=== PATIENT | male | born 1960 | race Caucasian/White ===

== ENCOUNTER 2018-01-25 19:07 | Inpatient (IN) | payer OTHER ==
[~2018-01-25] VITALS: Ht 182.9 cm; Wt 83.6 kg
[2018-01-25 19:09] VITALS: Ht 182.9 cm; Wt 83.6 kg
[2018-01-25 19:39] LABS: BASOPHIL % 0.7 % (0-2); PLATELET COUNT 195 x10^3mcL (130-400); RED CELL DISTRIBUTION WIDTH 13.4 % (11.5-14.5)
[2018-01-25 20:35] LABS: CALCIUM 8.6 mg/dL (8.5-10.1); CARBON DIOXIDE 22.4 mmol/L (21-32); CHLORIDE SERUM 113 mmol/L (98-107); CREATININE SERUM 1.2 mg/dL (0.7-1.3); GFR1 > 60 mL/min; GLUCOSE SERUM 113 mg/dL (74-106); POTASSIUM SERUM 3.6 mmol/L (3.5-5.1); SODIUM SERUM 149 mmol/L (136-145)
[2018-01-25 20:39] LABS: ALKALINE PHOSPHATASE 115 U/L (46-116); ALT/SGPT 41 U/L (16-63); AST/SGOT 24 U/L (15-37); TOTAL PROTEIN, SERUM 7.4 g/dL (6.4-8.2)
[2018-01-25] MEDS ORDERED: THE MEDICINE S150 MG PO (20:48)
[2018-01-25] MEDS ORDERED: ATORVASTATIN CA40 M1 PO (20:48)
[2018-01-25] MEDS ORDERED: TOPAMAX50 M1 PO (20:48)
[2018-01-25] MEDS ORDERED: ASPIR 8181 MG PO (20:49)
[2018-01-25 22:13] LABS: CHOLESTEROL/HDL RATIO 2.9; MAGNESIUM 2.1 mg/dL (1.8-2.4); PHOSPHOROUS 2.6 mg/dL (2.5-4.9)
[2018-01-25 22:18] LABS: T3 TOTAL 1.16 ng/mL
[2018-01-25 22:20] LABS: FREE T4 0.82 ng/dL (0.76-1.46); FREE THYROXINE INDEX 1.9 ug/dL (1.4-4.5); T4(THYROXINE) 6.2 ug/dL (4.7-13.3)
[2018-01-25 22:35] VITALS: BP 110/70
[2018-01-26 00:58] LABS: urine erythrocyte NEGATIVE (NEGATIVE)
[2018-01-26 01:11] LABS: microscopic required? YES
[2018-01-26 01:20] LABS: AMPHETAMINE QUAL UR NONE DETECTED (See below)
[2018-01-26 04:55] VITALS: BP 119/76
[2018-01-26 07:54] LABS: BASOPHIL % 0.5 % (0-2); PLATELET COUNT 170 x10^3mcL (130-400); RED CELL DISTRIBUTION WIDTH 13.8 % (11.5-14.5)
[2018-01-26 08:01] LABS: CALCIUM 8.1 mg/dL (8.5-10.1); CARBON DIOXIDE 23.1 mmol/L (21-32); CHLORIDE SERUM 115 mmol/L (98-107); CREATININE SERUM 1.1 mg/dL (0.7-1.3); GFR1 > 60 mL/min; GLUCOSE SERUM 96 mg/dL (74-106); POTASSIUM SERUM 4.3 mmol/L (3.5-5.1); SODIUM SERUM 150 mmol/L (136-145)
[2018-01-26 08:19] VITALS: BP 109/62
[2018-01-26 12:21] VITALS: BP 104/62
[2018-01-26 17:24] VITALS: BP 118/80
[2018-01-26 19:10] VITALS: BP 125/78
[2018-01-26 20:47] VITALS: BP 124/79
[2018-01-27 05:03] VITALS: BP 100/61
[2018-01-27 06:58] LABS: BASOPHIL % 0.6 % (0-2); PLATELET COUNT 160 x10^3mcL (130-400); RED CELL DISTRIBUTION WIDTH 13.7 % (11.5-14.5)
[2018-01-27 07:06] LABS: CALCIUM 8.5 mg/dL (8.5-10.1); CARBON DIOXIDE 19.7 mmol/L (21-32); CHLORIDE SERUM 115 mmol/L (98-107); CREATININE SERUM 0.9 mg/dL (0.7-1.3); GFR1 > 60 mL/min; GLUCOSE SERUM 90 mg/dL (74-106); MAGNESIUM 1.8 mg/dL (1.8-2.4); PHOSPHOROUS 3.9 mg/dL (2.5-4.9); SODIUM SERUM 148 mmol/L (136-145)
[2018-01-27] MEDS ORDERED: TOP50 PO (07:25)
[2018-01-27] MEDS ORDERED: NIT0.4 SL (07:29)
[2018-01-27] MEDS ORDERED: LIPITOR40 MG PO (07:33)
[2018-01-27 10:05] VITALS: BP 113/69
[2018-01-27 12:17] VITALS: BP 113/69
[2018-01-27 12:42] VITALS: BP 112/72
[2018-01-27] MEDS ORDERED: GOOD SENSE OMEP20 MG PO (16:48)
== END 2018-01-27 17:18 | disposition home or self-care (01) | DRG 203 ==
LOC: ED 19:07 → DU 21:24
PROVIDERS: Emergency Medicine; Family Medicine; Internal Medicine
DX: M94.0 Chondrocostal junction syndrome [Tietze] (principal); E87.0 Hyperosmolality and hypernatremia; E83.51 Hypocalcemia; K21.9 Gastro-esophageal reflux disease without esophagitis; I69.354 Hemiplegia and hemiparesis following cerebral infarction affecting left non-dominant side; E78.00 Pure hypercholesterolemia, unspecified; G40.909 Epilepsy, unspecified, not intractable, without status epilepticus; I25.2 Old myocardial infarction; Z98.61 Coronary angioplasty status; Z68.25 Body mass index [BMI] 25.0-25.9, adult; Z85.01 Personal history of malignant neoplasm of esophagus; I25.10 Atherosclerotic heart disease of native coronary artery without angina pectoris
CPT/HCPCS: 83880; 84439; 85378; 97110-GP; 97116-GP; 97530-GP; 97535-GP; A9500; J1644; J2270; J2785; J7030; Q0092; Q0162; Q9967

== ENCOUNTER 2019-03-25 00:20 | Emergency (ER) | payer MEDICAID ==
[~2019-03-25] VITALS: Ht 182.9 cm; Wt 86.2 kg
[~2019-03-25 00:20] MED LIST: ASPIR 8181 MG PO; ATORVASTATIN CA40 M1 PO; GOOD SENSE OMEP20 MG PO; LIPITOR40 MG PO; NIT0.4 SL; THE MEDICINE S150 MG PO; TOP50 PO; TOPAMAX50 M1 PO
[2019-03-25 00:23] VITALS: Ht 182.9 cm; Wt 86.2 kg
[2019-03-25 02:08] LABS: CALCIUM 9.9 mg/dL (8.5-10.1); CARBON DIOXIDE 18.6 mmol/L (21-32); CHLORIDE SERUM 110 mmol/L (98-107); CREATININE SERUM 1.9 mg/dL (0.7-1.3); GFR1 38 mL/min; GLUCOSE SERUM 147 mg/dL (74-106); POTASSIUM SERUM 3.9 mmol/L (3.5-5.1); SODIUM SERUM 145 mmol/L (136-145)
[2019-03-25 02:09] LABS: PLATELET COUNT 239 x10^3mcL (130-400); RED CELL DISTRIBUTION WIDTH 12.9 % (11.5-14.5)
[2019-03-25 02:13] LABS: ALKALINE PHOSPHATASE 140 U/L (46-116); ALT/SGPT 32 U/L (16-63); AST/SGOT 19 U/L (15-37); BILIRUBIN TOTAL 0.42 mg/dL (0.20-1.00); CHOLESTEROL 134 mg/dL (<200); TOTAL PROTEIN, SERUM 7.6 g/dL (6.4-8.2)
[2019-03-25 02:17] LABS: BASOPHIL % 0 % (0-2)
[2019-03-25 03:26] LABS: UA SPECIFIC GRAVITY >=1.030 (1.005-1.035); microscopic required? YES; urine erythrocyte 3+ (NEGATIVE)
[2019-03-25 07:56] VITALS: BP 111/64
== END 2019-03-25 07:56 | disposition short-term general hospital (02) ==
LOC: ED 00:20
PROVIDERS: Emergency Medicine
DX: G40.909 Epilepsy, unspecified, not intractable, without status epilepticus (principal); R41.82 Altered mental status, unspecified; E78.00 Pure hypercholesterolemia, unspecified; Z88.2 Allergy status to sulfonamides
CPT/HCPCS: 82962; G0480; J2060; J2405; J7030; Q0092

== ENCOUNTER 2019-04-02 18:05 | Inpatient (IN) | payer MEDICAID ==
[~2019-04-02] VITALS: Ht 172.7 cm; Wt 79.0 kg
[2019-04-02 18:38] LABS: BASOPHIL % 0.1 % (0-2); PLATELET COUNT 342 x10^3mcL (130-400); RED CELL DISTRIBUTION WIDTH 12.3 % (11.5-14.5)
[2019-04-02 18:41] LABS: CARBON DIOXIDE 11.9 mmol/L (21-32); POTASSIUM SERUM 3.6 mmol/L (3.5-5.1)
[2019-04-02 18:46] LABS: ALBUMIN 3.6 g/dL (3.4-5.0); BILIRUBIN TOTAL 0.47 mg/dL (0.20-1.00); TOTAL PROTEIN, SERUM 7.2 g/dL (6.4-8.2)
[2019-04-02 22:20] LABS: BASOPHIL % 0.3 % (0-2); PLATELET COUNT 233 x10^3mcL (130-400); RED CELL DISTRIBUTION WIDTH 12.4 % (11.5-14.5)
[2019-04-02 22:38] LABS: CALCIUM 8.6 mg/dL (8.5-10.1); CARBON DIOXIDE 23.7 mmol/L (21-32); CREATININE SERUM 1.5 mg/dL (0.7-1.3); POTASSIUM SERUM 3.5 mmol/L (3.5-5.1)
[2019-04-02 23:24] VITALS: BP 93/51
[2019-04-02 23:54] LABS: T3 TOTAL 1.24 ng/mL
[2019-04-02 23:56] LABS: FREE T4 0.91 ng/dL (0.76-1.46); FREE THYROXINE INDEX 2.9 ug/dL (1.4-4.5); T4(THYROXINE) 8.2 ug/dL (4.7-13.3)
[2019-04-03 05:03] VITALS: BP 111/66
[2019-04-03 06:15] LABS: CALCIUM 7.7 mg/dL (8.5-10.1); CARBON DIOXIDE 23.4 mmol/L (21-32); CHLORIDE SERUM 115 mmol/L (98-107); CREATININE SERUM 1.2 mg/dL (0.7-1.3); GFR1 > 60 mL/min; GLUCOSE SERUM 101 mg/dL (74-106); POTASSIUM SERUM 3.2 mmol/L (3.5-5.1); SODIUM SERUM 147 mmol/L (136-145)
[2019-04-03 07:24] LABS: BASOPHIL % 0.4 % (0-2); PLATELET COUNT 199 x10^3mcL (130-400); RED CELL DISTRIBUTION WIDTH 12.1 % (11.5-14.5)
[2019-04-03 07:50] VITALS: BP 102/45
[2019-04-03 08:01] LABS: UA SPECIFIC GRAVITY 1.015 (1.005-1.035); microscopic required? YES; urine erythrocyte 3+ (NEGATIVE)
[2019-04-03 08:13] LABS: AMPHETAMINE QUAL UR NONE DETECTED (See below)
[2019-04-03 11:42] VITALS: BP 102/62
[2019-04-03 16:44] VITALS: BP 100/62
[2019-04-03 20:19] VITALS: BP 99/63
[2019-04-04 05:25] VITALS: BP 95/55
[2019-04-04 06:36] LABS: BASOPHIL % 0.7 % (0-2); PLATELET COUNT 187 x10^3mcL (130-400); RED CELL DISTRIBUTION WIDTH 12.1 % (11.5-14.5)
[2019-04-04 06:44] LABS: CALCIUM 7.6 mg/dL (8.5-10.1); CARBON DIOXIDE 24.5 mmol/L (21-32); CHLORIDE SERUM 111 mmol/L (98-107); CREATININE SERUM 1.1 mg/dL (0.7-1.3); GFR1 > 60 mL/min; GLUCOSE SERUM 96 mg/dL (74-106); POTASSIUM SERUM 3.1 mmol/L (3.5-5.1); SODIUM SERUM 144 mmol/L (136-145)
[2019-04-04 09:02] VITALS: BP 107/60
[2019-04-04] MEDS ORDERED: KEPPRA1000 M1 PO (10:55)
[2019-04-04 12:22] VITALS: BP 96/58
[2019-04-04 12:56] VITALS: BP 96/58
== END 2019-04-04 13:39 | disposition home or self-care (01) | DRG 53 ==
LOC: ED 18:05 → DU 22:01
PROVIDERS: Emergency Medicine; ADMIT Internal Medicine
DX: G40.409 Other generalized epilepsy and epileptic syndromes, not intractable, without status epilepticus (principal); N17.0 Acute kidney failure with tubular necrosis; R65.11 Systemic inflammatory response syndrome (SIRS) of non-infectious origin with acute organ dysfunction; E87.8 Other disorders of electrolyte and fluid balance, not elsewhere classified; E87.0 Hyperosmolality and hypernatremia; E86.0 Dehydration; E86.1 Hypovolemia; Z86.73 Personal history of transient ischemic attack (TIA), and cerebral infarction without residual deficits; Z79.82 Long term (current) use of aspirin
CPT/HCPCS: 80201; 84439; 97116-GP; G0378; J1953; J2060; J3475; J7030; J7042; Q0092; Q9967

== ENCOUNTER 2019-10-10 08:52 | Emergency (ER) | payer MEDICAID ==
[~2019-10-10] VITALS: Ht 182.9 cm; Wt 86.2 kg
[~2019-10-10 08:52] MED LIST changes: +KEPPRA1000 M1 PO
[2019-10-10 08:57] VITALS: Ht 182.9 cm; Wt 86.2 kg
[2019-10-10 09:32] LABS: BASOPHIL % 0.9 % (0-2); PLATELET COUNT 189 x10^3mcL (130-400); RED CELL DISTRIBUTION WIDTH 11.8 % (11.5-14.5)
[2019-10-10 09:42] LABS: CALCIUM 9.8 mg/dL (8.5-10.1); CREATININE SERUM 1.3 mg/dL (0.7-1.3)
[2019-10-10 09:49] LABS: BILIRUBIN TOTAL 0.6 mg/dL (0.20-1.00); TOTAL PROTEIN, SERUM 7.1 g/dL (6.4-8.2)
[2019-10-10 09:50] LABS: CHOLESTEROL/HDL RATIO 3.1
[2019-10-10 09:53] LABS: FREE T4 0.92 ng/dL (0.76-1.46); T4(THYROXINE) 6.7 ug/dL (4.7-13.3)
[2019-10-10 10:20] LABS: T3 TOTAL 1.47 ng/mL
[2019-10-10 11:25] VITALS: BP 119/74
[2019-10-11] MEDS ORDERED: KEPPRA500 MG PO (23:08)
== END 2019-10-10 11:25 | disposition home or self-care (01) ==
LOC: ED 08:52
PROVIDERS: Specialist
DX: G40.909 Epilepsy, unspecified, not intractable, without status epilepticus (principal); S39.012A Strain of muscle, fascia and tendon of lower back, initial encounter; E78.00 Pure hypercholesterolemia, unspecified; Z86.73 Personal history of transient ischemic attack (TIA), and cerebral infarction without residual deficits; Z85.01 Personal history of malignant neoplasm of esophagus; Z88.8 Allergy status to other drugs, medicaments and biological substances; W18.39XA Other fall on same level, initial encounter; Y93.89 Activity, other specified; Y92.89 Other specified places as the place of occurrence of the external cause; Y99.8 Other external cause status
CPT/HCPCS: 84439; J1885

== ENCOUNTER 2019-10-11 21:29 | Inpatient (IN) | payer MEDICAID ==
[~2019-10-11] VITALS: Ht 182.9 cm; Wt 84.9 kg
[2019-10-11 22:03] LABS: microscopic required? YES; urine erythrocyte 3+ (NEGATIVE)
[2019-10-11 22:03] LABS: BASOPHIL % 0.3 % (0-2); PLATELET COUNT 154 x10^3mcL (130-400); RED CELL DISTRIBUTION WIDTH 12.4 % (11.5-14.5)
[2019-10-11 22:13] LABS: CALCIUM 9.3 mg/dL (8.5-10.1); CARBON DIOXIDE 24.8 mmol/L (21-32); CREATININE SERUM 2.3 mg/dL (0.7-1.3); POTASSIUM SERUM 3.7 mmol/L (3.5-5.1)
[2019-10-11 22:18] LABS: ALBUMIN 3.9 g/dL (3.4-5.0); BILIRUBIN TOTAL 1.6 mg/dL (0.20-1.00); TOTAL PROTEIN, SERUM 7.5 g/dL (6.4-8.2)
[2019-10-11] MEDS ORDERED: KEPPRA500 MG PO (23:08)
[2019-10-11 23:55] LABS: CHOLESTEROL/HDL RATIO 2.2; MAGNESIUM 1.3 mg/dL (1.8-2.4); PHOSPHOROUS 3.1 mg/dL (2.5-4.9)
[2019-10-12 00:01] LABS: FREE T4 1.19 ng/dL (0.76-1.46); FREE THYROXINE INDEX 2.7 ug/dL (1.4-4.5); T4(THYROXINE) 8.6 ug/dL (4.7-13.3)
[2019-10-12 00:23] LABS: T3 TOTAL 1.17 ng/mL
[2019-10-12 01:18] VITALS: BP 137/86
[2019-10-12 01:20] VITALS: Ht 182.9 cm; Wt 84.9 kg
[2019-10-12 04:29] LABS: AMPHETAMINE QUAL UR NONE DETECTED (See below)
[2019-10-12 04:45] VITALS: BP 143/94
[2019-10-12 06:43] LABS: BASOPHIL % 0.1 % (0-2); PLATELET COUNT 136 x10^3mcL (130-400); RED CELL DISTRIBUTION WIDTH 12.9 % (11.5-14.5)
[2019-10-12 08:07] VITALS: BP 138/83
[2019-10-12 08:13] LABS: CALCIUM 8.3 mg/dL (8.5-10.1); CARBON DIOXIDE 25.9 mmol/L (21-32); CREATININE SERUM 2.1 mg/dL (0.7-1.3); MAGNESIUM 1.4 mg/dL (1.8-2.4)
[2019-10-12 13:16] VITALS: BP 118/66
[2019-10-12 16:40] VITALS: BP 112/51
[2019-10-12 20:36] VITALS: BP 115/60
[2019-10-13 05:05] VITALS: BP 111/52
[2019-10-13 07:21] LABS: CARBON DIOXIDE 24.8 mmol/L (21-32); CREATININE SERUM 2.2 mg/dL (0.7-1.3); POTASSIUM SERUM 3.9 mmol/L (3.5-5.1)
[2019-10-13 07:33] LABS: RED CELL DISTRIBUTION WIDTH 12.9 % (11.5-14.5)
[2019-10-13 07:41] VITALS: BP 107/68
[2019-10-13 07:42] LABS: BASOPHIL % 0 % (0-2); PLATELET COUNT 125 x10^3mcL (130-400)
[2019-10-13 12:38] VITALS: BP 95/68
[2019-10-13 13:56] VITALS: BP 118/63
[2019-10-13 17:26] VITALS: BP 96/61
[2019-10-13 20:30] VITALS: BP 112/65
[2019-10-14 04:48] VITALS: BP 101/68
[2019-10-14 06:51] LABS: CARBON DIOXIDE 25.1 mmol/L (21-32); MAGNESIUM 2.3 mg/dL (1.8-2.4); POTASSIUM SERUM 3.5 mmol/L (3.5-5.1)
[2019-10-14 07:05] LABS: BASOPHIL % 0.3 % (0-2); PLATELET COUNT 131 x10^3mcL (130-400); RED CELL DISTRIBUTION WIDTH 12.6 % (11.5-14.5)
[2019-10-14 07:37] LABS: CALCIUM 8.1 mg/dL (8.5-10.1)
[2019-10-14 07:40] VITALS: BP 118/61
[2019-10-14 11:46] VITALS: BP 125/70
[2019-10-14 15:46] VITALS: BP 123/69
[2019-10-14 20:07] VITALS: BP 140/69
[2019-10-15 05:49] VITALS: BP 110/61
[2019-10-15 07:29] VITALS: BP 107/68
[2019-10-15 07:30] LABS: BASOPHIL % 0.3 % (0-2); PLATELET COUNT 143 x10^3mcL (130-400); RED CELL DISTRIBUTION WIDTH 12.5 % (11.5-14.5)
[2019-10-15 07:50] LABS: CALCIUM 8.3 mg/dL (8.5-10.1); CARBON DIOXIDE 20.2 mmol/L (21-32); CREATININE SERUM 1.9 mg/dL (0.7-1.3); POTASSIUM SERUM 3.6 mmol/L (3.5-5.1)
[2019-10-15 13:06] VITALS: BP 120/71
[2019-10-15 15:35] VITALS: BP 117/61
== END 2019-10-15 16:22 | disposition left against medical advice (07) | DRG 720 ==
LOC: ED 21:29 → DU 22:56
PROVIDERS: Emergency Medicine; Internal Medicine Gastroenterology; ADMIT Family Medicine
PROC: 0DB28ZX Excision of Middle Esophagus, Via Natural or Artificial Opening Endoscopic, Diagnostic (ICD-10-PCS; principal; 2019-10-13 12:30)
PROC: 0DB18ZX Excision of Upper Esophagus, Via Natural or Artificial Opening Endoscopic, Diagnostic (ICD-10-PCS; 2019-10-13 12:30)
DX: A41.9 Sepsis, unspecified organism (principal); N17.0 Acute kidney failure with tubular necrosis; R65.20 Severe sepsis without septic shock; N39.0 Urinary tract infection, site not specified; E78.00 Pure hypercholesterolemia, unspecified; I25.2 Old myocardial infarction; I25.10 Atherosclerotic heart disease of native coronary artery without angina pectoris; Z86.73 Personal history of transient ischemic attack (TIA), and cerebral infarction without residual deficits; K21.9 Gastro-esophageal reflux disease without esophagitis; G40.909 Epilepsy, unspecified, not intractable, without status epilepticus; Z82.49 Family history of ischemic heart disease and other diseases of the circulatory system; K44.9 Diaphragmatic hernia without obstruction or gangrene
CPT/HCPCS: 43235; 83880; 84439; 92526-GN; 92610-GN; 97112-GP; 97116-GP; 97530-GP; C9113; G0378; J0696; J1200; J1610; J1953; J2060; J2250; J2310; J2405; J2765; J3010; J3475; J3490; J7030; J7050; J7060; Q0092

== ENCOUNTER 2020-05-26 07:58 | Emergency (ER) | payer OTHER, MEDICAID ==
[~2020-05-26] VITALS: Ht 182.9 cm; Wt 93.9 kg
[~2020-05-26 07:58] MED LIST changes: +KEPPRA500 MG PO
[2020-05-26 08:14] VITALS: Ht 182.9 cm; Wt 93.9 kg
[2020-05-26 12:27] LABS: CALCIUM 9.7 mg/dL (8.5-10.1); CARBON DIOXIDE 23.5 mmol/L (21-32); CREATININE SERUM 1.5 mg/dL (0.7-1.3); POTASSIUM SERUM 4.3 mmol/L (3.5-5.1)
[2020-05-26 12:29] LABS: ALBUMIN 4.4 g/dL (3.4-5.0); BILIRUBIN TOTAL 0.88 mg/dL (0.20-1.00); TOTAL PROTEIN, SERUM 8.4 g/dL (6.4-8.2)
[2020-05-26 12:38] LABS: BASOPHIL % 1.2 % (0.2-1.5); PLATELET COUNT 194 x10^3mcL (152-348); RED CELL DISTRIBUTION WIDTH 13.8 % (12.1-16.2)
[2020-05-26 14:13] LABS: rbc morphology (normal/abnorm) NORMAL (NORMAL)
[2020-05-26 14:58] VITALS: BP 111/79
== END 2020-05-26 14:58 | disposition home or self-care (01) ==
LOC: ED 07:58
PROVIDERS: Emergency Medicine
DX: R07.89 Other chest pain (principal); R06.02 Shortness of breath; E78.00 Pure hypercholesterolemia, unspecified; Z98.890 Other specified postprocedural states; Z86.73 Personal history of transient ischemic attack (TIA), and cerebral infarction without residual deficits; Z88.8 Allergy status to other drugs, medicaments and biological substances; Z85.01 Personal history of malignant neoplasm of esophagus

== ENCOUNTER 2020-08-03 00:40 | Emergency (ER) | payer OTHER, MEDICAID ==
[~2020-08-03] VITALS: Ht 172.7 cm; Wt 74.8 kg
[2020-08-03 00:45] VITALS: Ht 172.7 cm; Wt 74.8 kg
[2020-08-03 01:22] LABS: BASOPHIL % 0.1 % (0.2-1.5); PLATELET COUNT 268 x10^3mcL (152-348); RED CELL DISTRIBUTION WIDTH 13.9 % (12.1-16.2)
[2020-08-03 01:34] LABS: CALCIUM 8.6 mg/dL (8.5-10.1); CARBON DIOXIDE 19.1 mmol/L (21-32); CREATININE SERUM 3.2 mg/dL (0.7-1.3); POTASSIUM SERUM 4.3 mmol/L (3.5-5.1)
[2020-08-03 01:39] LABS: ALBUMIN 3.9 g/dL (3.4-5.0); BILIRUBIN TOTAL 0.7 mg/dL (0.20-1.00); TOTAL PROTEIN, SERUM 7.4 g/dL (6.4-8.2)
[2020-08-03 02:48] LABS: UA SPECIFIC GRAVITY >=1.030 (1.005-1.035); microscopic required? YES; urine erythrocyte 3+ (NEGATIVE)
[2020-08-03 12:21] VITALS: BP 117/64
== END 2020-08-03 12:20 | disposition short-term general hospital (02) ==
LOC: ED 00:40
PROVIDERS: Emergency Medicine
DX: N17.9 Acute kidney failure, unspecified (principal); R41.82 Altered mental status, unspecified; E78.00 Pure hypercholesterolemia, unspecified; Z88.8 Allergy status to other drugs, medicaments and biological substances; Z20.828 Contact with and (suspected) exposure to other viral communicable diseases
CPT/HCPCS: J0696; J2060; J7030; J7060